=== PATIENT | female | born 1980 | race Caucasian/White ===

== ENCOUNTER 2023-02-23 12:20 | Emergency (ER) | payer BC ==
--- NOTE | 2023-02-23 12:25 | ERPHSYRPT ---
- History of Present Illness Time Seen by Provider: 02/23/23 12:25 Historian: patient Exam Limitations: no limitations Physician History: This is a 42-year-old white female patient who has had a hysterectomy the past and presents with bilateral upper quadrant abdominal pain with diarrhea that is described as watery and frequent that began last evening and vomiting that has been described as multiple episodes and began this morning. Patient is unable to hold any oral intake down. Patient has no known exposures to individuals with similar symptoms or with the diagnosis of flus. Patient denies shortness of breath. Patient denies chest pain. Timing/Duration: yesterday Activities at Onset: none Quality: cramping Abdominal Pain Onset Location: RUQ, LUQ Pain Radiation: no radiation Severity of Pain-Max: moderate Severity of Pain-Current: moderate Modifying Factors: Improves With: vomiting Associated Symptoms: diarrhea, loss of appetite, nausea, vomiting, weakness Previous symptoms: no prior history, no recent treatment Allergies/Adverse Reactions: ampicillin Allergy (Verified 02/23/23 12:43) sulfamethoxazole [From Bactrim] Allergy (Verified 02/23/23 12:43) trimethoprim [From Bactrim] Allergy (Verified 02/23/23 12:43) Home Medications: Phentermine HCl 37.5 mg PO DAILY 02/23/23 [History] Rimegepant Sulfate [Nurtec Odt] 1 tab SL Q2D 02/23/23 [History] Hx Tetanus, Diphtheria Vaccination/Date Given: Yes Hx Influenza Vaccination/Date Given: No Hx Pneumococcal Vaccination/Date Given: No Travel Risk - International Travel Have you traveled outside of the country in past 3 weeks: No - Coronavirus Screening Are you exhibiting any of the following symptoms?: Yes Symptoms: Vomiting/Diarrhea Close contact with a COVID-19 positive Pt in past 14-21 Days: No - Review of Systems Constitutional: No Symptoms Eyes: No Symptoms Ears, Nose, & Throat: No Symptoms Respiratory: No Symptoms Cardiac: No Symptoms Abdominal/Gastrointestinal: Abdominal Pain, Nausea, Vomiting, Diarrhea, Appetite Changes Genitourinary Symptoms: No Symptoms Musculoskeletal: No Symptoms Skin: No Symptoms Neurological: No Symptoms Psychological: No Symptoms Endocrine: No Symptoms Hematologic/Lymphatic: No Symptoms Immunological/Allergic: No Symptoms All Other Systems: Reviewed and Negative - Past Medical History Pertinent Past Medical History: No - Past Surgical History Past Surgical History: Yes Female Surgical History: Hysterectomy - Social History Smoking Status: Never smoker Exposure to second hand smoke: No Drug Use: none Patient Lives Alone: No - Nursing Vital Signs Nursing Vital Signs: Initial Vital Signs Temperature 98.5 F 02/23/23 12:35 Pulse Rate 93 H 02/23/23 12:35 Blood Pressure 121/80 02/23/23 12:35 O2 Sat by Pulse Oximetry 90 L 02/23/23 12:35 Pain Scale Pain Intensity 8 - Physical Exam General Appearance: no apparent distress, alert, anxiety Eye Exam: PERRL/EOMI, eyes nml inspection Ears, Nose, Throat Exam: normal ENT inspection, moist mucous membranes Neck Exam: normal inspection, non-tender, supple, full range of motion Respiratory Exam: normal breath sounds, lungs clear, No chest tenderness, No respiratory distress Cardiovascular Exam: regular rate/rhythm, normal heart sounds, normal peripheral pulses Gastrointestinal/Abdomen Exam: soft, normal bowel sounds, tenderness (Mild nedra ateral upper quadrant and epigastric), guarding (Tenderness to palpation), No rebound Pelvic Exam: not done Rectal Exam: not done Back Exam: normal inspection, normal range of motion, No CVA tenderness, No vertebral tenderness Extremity Exam: normal inspection, normal range of motion, pelvis stable Neurologic Exam: alert, oriented x 3, cooperative, 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, normal mood/affect, nml cerebellar function, nml station & gait, sensation nml Skin Exam: normal color, warm, dry Lymphatic Exam: No adenopathy SpO2 Interpretation: normal O2 Delivery: Room Air - Course Nursing assessment & vital signs reviewed: Yes Ordered Tests: Active Orders 24 hr Category Date Time Status IV Insertion STAT Care 02/23/23 13:05 Active ABDOMEN AND PELVIS W/0 CONTRAS [CT] Stat Exams 02/23/23 13:10 Completed AMYLASE Stat Lab 02/23/23 12:55 Completed BLOOD CULTURE Stat Lab 02/23/23 13:05 Received CBC W DIFF Stat Lab 02/23/23 12:55 Completed CMP Stat Lab 02/23/23 12:55 Completed LIPASE Stat Lab 02/23/23 12:55 Completed UA W/RFX UR CULTURE Stat Lab 02/23/23 13:13 Completed Medication Summary Generic Name Dose Route Start Last Admin Trade Name Freq PRN Reason Stop Dose Admin Sodium Chloride 1,000 mls @ 999 mls/hr 02/23/23 14:14 Sodium Chloride 0.9% 1000 Ml IV 02/23/23 15:14 .Q1H1M STA Discontinued Medications Generic Name Dose Route Start Last Admin Trade Name Oh PRN Reason Stop Dose Admin Sodium Chloride 1,000 mls @ 999 mls/hr 02/23/23 13:05 02/23/23 13:15 Sodium Chloride 0.9% 1000 Ml IV 02/23/23 14:05 999 mls/hr .Q1H1M STA Administration Sodium Chloride Confirm 02/23/23 13:10 Sodium Chloride 0.9% 1000 Ml Administered 02/23/23 13:11 Dose 1,000 mls @ ud .ROUTE .STK-MED ONE Ondansetron HCl 4 mg 02/23/23 13:05 02/23/23 13:15 Ondansetron Hcl 4 Mg/2 Ml Vial IV 02/23/23 13:06 4 mg STAT ONE Administration Ondansetron HCl Confirm 02/23/23 13:10 Ondansetron Hcl 4 Mg/2 Ml Vial Administered 02/23/23 13:11 Dose 4 mg .ROUTE .STK-MED ONE Lab/Rad Data: Laboratory Result Diagrams 02/23/23 12:55 02/23/23 12:55 Laboratory Results 02/23/23 02/23/23 02/23/23 Range/Units 13:20 13:13 12:55 WBC (4.0-10.5) x10^3/uL RBC (4.1-5.4) x10^6/uL Hgb (12.0-16.0) g/dL Hct (35-47) % MCV (78-100) fL MCH (26-32) pg MCHC (32-36) g/dL RDW (11.5-14.0) % Plt Count (150-450) x10^3/uL MPV (7.5-11.0) fL Gran % (36.0-66.0) % Immature Gran % (Auto) (0.00-0.4) % Nucleat RBC Rel Count (0.00-0.1) % Eos # (Auto) (0-0.5) x10^3/uL Immature Gran # (Auto) (0.00-0.03) x10^3u/L Absolute Lymphs (auto) (1.0-4.6) x10^3/uL Absolute Monos (auto) (0.0-1.3) x10^3/uL Absolute Nucleated RBC (0.00-0.01) x10^3u/L Lymphocytes % (24.0-44.0) % Monocytes % (0.0-12.0) % Eosinophils % (0.00-5.0) % Basophils % (0.0-0.4) % Absolute Granulocytes (1.4-6.9) x10^3/uL Basophils # (0-0.4) x10^3/uL Sodium 135 L (137-145) mmol/L Potassium 4.8 (3.5-5.1) mmol/L Chloride 106 (98-107) mmol/L Carbon Dioxide 20 L (22-30) mmol/L Anion Gap 14.2 (5-15) MEQ/L BUN 12 (7-17) mg/dL Creatinine 0.50 L (0.52-1.04) mg/dL Estimated GFR 119.3 ML/MIN Glucose 106 (74-106) mg/dL Calcium 9.1 (8.4-10.2) mg/dL Total Bilirubin 2.20 H (0.2-1.3) mg/dL AST 48 H (14-36) U/L ALT 34 (0-35) U/L Alkaline Phosphatase 50 (38-126) U/L Serum Total Protein 8.4 H (6.3-8.2) g/dL Albumin 5.0 (3.5-5.0) g/dL Amylase 62 (30-110) U/L Lipase 110 (23-300) U/L Urine Color Dark Yellow A (Yellow) Urine Appearance Clear (Clear) Urine pH 5.0 (4.6-8.0) Ur Specific [place] 1.025 (1.005-1.030) Urine Protein Negative (Negative) Urine Glucose (UA) Negative (Negative) mg/dL Urine Ketones Trace A (Negative) Urine Blood Negative (Negative) Urine Nitrite Negative (Negative) Urine Bilirubin Negative (Negative) Urine Urobilinogen 0.2 (0.2) mg/dL Ur Leukocyte Esterase Negative (Negative) U Hyaline Cast (Auto) NONE SEEN (0-2) /LPF Urine Microscopic RBC 0-2 (0-5) /HPF Urine Microscopic WBC 0-2 (0-5) /HPF Ur Epithelial Cells None Seen (None Seen) /HPF Urine Bacteria None Seen (None Seen) /HPF Urine Culture Reflexed NO (NO) Influenza Type A Ag NEGATIVE (NEGATIVE) Influenza Type B Ag NEGATIVE (NEGATIVE) RSV (PCR) NEGATIVE (NEGATIVE) SARS-CoV-2 (PCR) POSITIVE A (NEGATIVE) 02/23/23 Range/Units 12:55 WBC 9.9 (4.0-10.5) x10^3/uL RBC 5.00 (4.1-5.4) x10^6/uL Hgb 14.3 (12.0-16.0) g/dL Hct 44.1 (35-47) % MCV 88.2 (78-100) fL MCH 28.6 (26-32) pg MCHC 32.4 (32-36) g/dL RDW 12.4 (11.5-14.0) % Plt Count 381 (150-450) x10^3/uL MPV 8.9 (7.5-11.0) fL Gran % 91.6 H (36.0-66.0) % Immature Gran % (Auto) 0.4 (0.00-0.4) % Nucleat RBC Rel Count 0.0 (0.00-0.1) % Eos # (Auto) 0.05 (0-0.5) x10^3/uL Immature Gran # (Auto) 0.04 H (0.00-0.03) x10^3u/L Absolute Lymphs (auto) 0.45 L (1.0-4.6) x10^3/uL Absolute Monos (auto) 0.27 (0.0-1.3) x10^3/uL Absolute Nucleated RBC 0.00 (0.00-0.01) x10^3u/L Lymphocytes % 4.6 L (24.0-44.0) % Monocytes % 2.7 (0.0-12.0) % Eosinophils % 0.5 (0.00-5.0) % Basophils % 0.2 (0.0-0.4) % Absolute Granulocytes 9.04 H (1.4-6.9) x10^3/uL Basophils # 0.02 (0-0.4) x10^3/uL Sodium (137-145) mmol/L Potassium (3.5-5.1) mmol/L Chloride (98-107) mmol/L Carbon Dioxide (22-30) mmol/L Anion Gap (5-15) MEQ/L BUN (7-17) mg/dL Creatinine (0.52-1.04) mg/dL Estimated GFR ML/MIN Glucose (74-106) mg/dL Calcium (8.4-10.2) mg/dL Total Bilirubin (0.2-1.3) mg/dL AST (14-36) U/L ALT (0-35) U/L Alkaline Phosphatase (38-126) U/L Serum Total Protein (6.3-8.2) g/dL Albumin (3.5-5.0) g/dL Amylase (30-110) U/L Lipase (23-300) U/L Urine Color (Yellow) Urine Appearance (Clear) Urine pH (4.6-8.0) Ur Specific [place] (1.005-1.030) Urine Protein (Negative) Urine Glucose (UA) (Negative) mg/dL Urine Ketones (Negative) Urine Blood (Negative) Urine Nitrite (Negative) Urine Bilirubin (Negative) Urine Urobilinogen (0.2) mg/dL Ur Leukocyte Esterase (Negative) U Hyaline Cast (Auto) (0-2) /LPF Urine Microscopic RBC (0-5) /HPF Urine Microscopic WBC (0-5) /HPF Ur Epithelial Cells (None Seen) /HPF Urine Bacteria (None Seen) /HPF Urine Culture Reflexed (NO) Influenza Type A Ag (NEGATIVE) Influenza Type B Ag (NEGATIVE) RSV (PCR) (NEGATIVE) SARS-CoV-2 (PCR) (NEGATIVE) - Progress Progress: improved, pain not gone completely, re-examined Progress Note: 02/23/23 14:12 This patient's medical issue is 1 of moderate complexity. Level complexity in the workup performed is based on review of the patient's past medical history, review of the patient's medication list, review of patient's drug allergy list, history of present illness and physical findings on examination. The workup in this patient includes placement of intravenous line, infusion 1 L normal saline solution, infusion and 4 mg Zofran intravenously, infusion of Dilaudid 1 mg intravenously, CBC, CMP, amylase, lipase, viral swabs, urinalysis, stool for culture and GI profile, CT scan of the abdomen pelvis without contrast. CT scan of the abdomen pelvis without contrast was interpreted by the radiologist and I reviewed the impression. The impression states mild gallbladder distention with cholesterol gallstones. No free air or free fluid. Normal appendix. Noncontrasted stomach and bowel loops appear nonobstructed. Remainder of CT scan of the abdomen pelvis without contrast is negative. 02/23/23 14:20 The laboratory data results were interpreted by me. The patient is mildly dehydrated. Her COVID test is positive. This is likely the cause of her vomiting and diarrhea symptoms. We will provide her with a second liter of intravenous fluid and provide her with this p.o. challenge. If she tolerates this p.o. challenge she will be discharged to home. Counseled pt/family regarding: lab results, diagnosis, need for follow-up, rad results Medical Desision Making - Independent Historian Additional History obtained from: Father - Diagnostic Testing Diagnostic test were ordered, analyzed, and reviewed by me: Yes Radiological Interpretation: Reviewed by me, Teleradiologist Report - Risk of complications The pt has a mod risk of morbidity or mortality based on: Need for prescription drug management - Departure Departure Disposition: Home Clinical Impression: Vomiting and diarrhea, COVID-19 virus infection Condition: Stable Critical Care Time: No Referrals: Liz GALARZA [Primary Care Provider] - Follow up/PCP as directed Additional Instructions: Drink plenty of clear liquids before advancing your diet. Take all your medications as prescribed. Prescriptions: Ondansetron ODT 4 MG [Zofran Odt 4 mg] 4 mg PO Q6H PRN PRN #10 tablet PRN Reason: Vomiting
[2023-02-23 12:43] VITALS: BP 121/80; PULSE 93; TEMP 98.5; O2SAT 90
[2023-02-23] MEDS ORDERED: Sodium Chloride 0.9% 1000 ML 1,000 ML IV STA ×2 (13:05→14:14)
[2023-02-23] MEDS ORDERED: Zofran 4 MG/2 ML VIAL IV ONE ×2 (13:05→15:39)
[2023-02-23] MEDS ORDERED: Zofran 4 MG/2 ML VIAL ONE ×2 (13:10→15:40)
[2023-02-23] MEDS ORDERED: Sodium Chloride 0.9% 1000 ML 1,000 ML ONE ×2 (13:10→14:29)
[2023-02-23 13:36] LABS: Absolute Neutrophil Ct (ANC) 9.04 x10^3/uL (1.4-6.9); BASOPHIL % 0.2 % (0.0-0.4); Basophil (Absolute #) 0.02 x10^3/uL (0-0.4); Eosinophil % 0.5 % (0.00-5.0); Eosinophil (Absolute #) 0.05 x10^3/uL (0-0.5); Hematocrit 44.1 % (35-47); Hemoglobin 14.3 g/dL (12.0-16.0); IMMATURE GRAN # 0.04 x10^3u/L (0.00-0.03); IMMATURE GRAN % 0.4 % (0.00-0.4); Lymphocyte (Absolute #) 0.45 x10^3/uL (1.0-4.6); Lymphocytes % 4.6 % (24.0-44.0); Mean Cell Volume 88.2 fL (78-100); Mean Corpuscular Hemoglobin 28.6 pg (26-32); Mean Corpuscular Hgb Concent. 32.4 g/dL (32-36); Mean Platelet Volume 8.9 fL (7.5-11.0); Monocyte (Absolute #) 0.27 x10^3/uL (0.0-1.3); Monocytes % 2.7 % (0.0-12.0); Neutrophil % 91.6 % (36.0-66.0); Platelet Count 381 x10^3/uL (150-450); Red Cell Distribution Width 12.4 % (11.5-14.0); White Blood Count 9.9 x10^3/uL (4.0-10.5)
[2023-02-23 13:46] LABS: Appearance Clear (Clear); Bacteria None Seen /HPF (None Seen); Bilirubin Negative (Negative); Blood Negative (Negative); Epithelial Cells None Seen /HPF (None Seen); Glucose, Urine Negative (Negative); Hyaline Casts NONE SEEN /LPF (0-2); Ketones Trace (Negative); Leukocyte Esterase Negative (Negative); Nitrite Negative (Negative); Protein,Urine Dip Negative (Negative); RBC 0-2 /HPF (0-5); Specific Gravity 1.025 (1.005-1.030); Urobilinogen 0.2 mg/dL (0.2); WBC 0-2 /HPF (0-5)
[2023-02-23 13:54] LABS: ANION GAP 14.2 MEQ/L (5-15); BILIRUBIN,TOTAL 2.2 mg/dL (0.2-1.3); Calcium 9.1 mg/dL (8.4-10.2); Creatinine 1 0.5 mg/dL (0.52-1.04); EST GLOMERULAR FILTRATION RATE 119.3 ML/MIN; Total Protein 8.4 g/dL (6.3-8.2)
[2023-02-23 13:56] LABS: Potassium 4.8 mmol/L (3.5-5.1)
--- NOTE | 2023-02-23 13:56 | XRAY ---
Indication: Abdomen pain, nausea, vomiting, diarrhea. Multiple contiguous axial images obtained through the abdomen and pelvis without contrast. Comparison: None Lung bases clear. Heart not enlarged. Noncontrasted stomach and bowel loops appear nonobstructed with normal appearing appendix. Mild distended gallbladder with tiny cholesterol gallstones in the dependent portion. No free fluid/air. Remaining liver, gallbladder, pancreas, spleen, adrenal glands, kidneys, ureters, bladder, uterus, and aorta are unremarkable for noncontrast exam. Osseous structures intact. No ventral or inguinal hernias. Impression: Cholesterol gallstones. Remaining CT abdomen/pelvis without contrast exam is negative.
[2023-02-23 14:03] LABS: ADD URINE CULTURE? NO (NO)
[2023-02-23 14:11] LABS: INFLUENZA A NEGATIVE (NEGATIVE); INFLUENZA B NEGATIVE (NEGATIVE); RESPIRATORY SYNCTIAL VIRUS NEGATIVE (NEGATIVE)
[2023-02-23 14:19] LABS: SARS-CoV-2 Xpert Express POSITIVE (NEGATIVE)
[2023-02-23 18:06] LABS: Slide Review 1 YES
== END 2023-02-23 16:04 | disposition home or self-care (01) ==
LOC: ED 12:20
DX: U07.1 COVID-19 (principal); R11.2 Nausea with vomiting, unspecified; R19.7 Diarrhea, unspecified; R10.11 Right upper quadrant pain; R10.12 Left upper quadrant pain; Z79.899 Other long term (current) drug therapy
CPT/HCPCS: 0241U; 36000; 36415; 74176; 80053; 81001; 82150; 83690; 85025; 87040; 96360; 96374; 96376; 99284; J2405